=== PATIENT | female | born 1975 | race Caucasian/White ===

== ENCOUNTER 2018-11-09 12:58 | Day surgery (SDC) | payer OTHER ==
[2018-11-09] MEDS ORDERED: GLYCOPYRROLATE 0.4 MG INJ (13:50)
[2018-11-09] MEDS ORDERED: PROPOFOL 40 ML (13:55)
== END 2018-11-09 21:52 | disposition home or self-care (01) ==
LOC: GIL 12:58
DX: K21.9 Gastro-esophageal reflux disease without esophagitis (principal); K29.30 Chronic superficial gastritis without bleeding; K44.9 Diaphragmatic hernia without obstruction or gangrene
CPT/HCPCS: 43239; 84703; 88305; 88312